=== PATIENT | male | born 1980 | race Caucasian/White ===

== ENCOUNTER 2019-08-17 04:12 | Emergency (ER) | payer SELFPAY ==
[2019-08-17 04:59] LABS: Urine Blood TRACE (NEG); Urine Glucose NEGATIVE (NEG); Urine Protein 1+ (NEG); Urine Specific Gravity >1.030 (1.005-1.030); Urine pH 5.5 (5.0-7.0)
[2019-08-17 05:15] LABS: Urine Bacteria 20-50 /HPF (NONE SEEN); Urine Culture Reflex Order REFLEXED; Urine Mucus 3+ /HPF (NONE SEEN)
[2019-08-17] MEDS ORDERED: AZITHROMYCIN 250 MG TAB ONE (06:22)
[2019-08-17] MEDS ORDERED: CEFTRIAXONE 250 MG/VIAL ONE (06:23)
--- NOTE | 2019-08-17 06:24 | EDPHYS ---
Physician Documentation [facility] Name: Cyril Corea Age: 39 yrs Sex: Male : 1980 Arrival Date: 08/17/2019 Time: 04:14 Bed 2 Private MD: ED Physician Ady Neely HPI: 08/16 06:21 This 39 yrs old Male presents to ER via Ambulatory with complaints of Penile kb Problem. 06:21 The patient presents with symptoms include dysuria, yellow penile discharge. Onset: The kb symptoms/episode began/occurred 3 day(s) ago. Modifying factors: The symptoms are alleviated by nothing, the symptoms are aggravated by urinating. Associated signs and symptoms: Pertinent positives: dysuria, Pertinent negatives: abdominal pain, constipation, diarrhea, fever, hematuria, nausea, vomiting. Severity of symptoms: At their worst the symptoms were moderate, in the emergency department the symptoms are unchanged. The patient has not experienced similar symptoms in the past. The patient has not recently seen a physician. Pt reports dysuria and yellow penile discharge for 3 days. . Historical: - Allergies: 04:36 No Known Allergies; rr5 - Home Meds: 04:36 None [Active]; rr5 - PMHx: 04:36 None; rr5 - PSHx: 04:36 leg surgery; right arm surgery; rr5 - Immunization history:: Adult Immunizations up to date. - Social history:: Smoking status: Patient reports the use of cigarette tobacco products, smokes one pack cigarettes per day. Patient uses alcohol, weekly. street drugs, cocaine. ROS: 06:21 Constitutional: Negative for fever, chills, and weight loss, Cardiovascular: Negative kb for chest pain, palpitations, and edema, Respiratory: Negative for shortness of breath, cough, wheezing, and pleuritic chest pain, Abdomen/GI: Negative for abdominal pain, nausea, vomiting, diarrhea, and constipation, Back: Negative for injury and pain, MS/Extremity: Negative for injury and deformity, Skin: Negative for injury, rash, and discoloration, Neuro: Negative for headache, weakness, numbness, tingling, and seizure. 06:21 : Positive for difficulty urinating, penile discharge. Exam: 06:21 Constitutional: This is a well developed, well nourished patient who is awake, alert, kb and in no acute distress. Head/Face: Normocephalic, atraumatic. Chest/axilla: Normal chest wall appearance and motion. Nontender with no deformity. No lesions are appreciated. Cardiovascular: Regular rate and rhythm with a normal S1 and S2. No gallops, murmurs, or rubs. Normal PMI, no JVD. No pulse deficits. Respiratory: Lungs have equal breath sounds bilaterally, clear to auscultation and percussion. No rales, rhonchi or wheezes noted. No increased work of breathing, no retractions or nasal flaring. Abdomen/GI: Soft, non-tender, with normal bowel sounds. No distension or tympany. No guarding or rebound. No evidence of tenderness throughout. Skin: Warm, dry with normal turgor. Normal color with no rashes, no lesions, and no evidence of cellulitis. MS/ Extremity: Pulses equal, no cyanosis. Neurovascular intact. Full, normal range of motion. Neuro: Awake and alert, GCS 15, oriented to person, place, time, and situation. Cranial nerves II-XII grossly intact. Motor strength 5/5 in all extremities. Sensory grossly intact. Cerebellar exam normal. Normal gait. Vital Signs: 04:30 BP 139 / 108; Pulse 89; Resp 16; Temp 99; Pulse Ox 99% ; Weight 70.31 kg; Height 5 ft. rr5 10 in. (177.80 cm); Pain 7/10; 05:40 BP 133 / 79; Pulse 85; Resp 17; Pulse Ox 99% ; rr5 06:30 BP 125 / 85; Pulse 80; Resp 17; Pulse Ox 98% on R/A; rr5 04:30 Body Mass Index 22.24 (70.31 kg, 177.80 cm) rr5 MDM: 06:00 Patient medically screened. kb 06:21 Data reviewed: vital signs, nurses notes. Data interpreted: Pulse oximetry: on room air kb is 99 %. Interpretation: normal. Counseling: I had a detailed discussion with the patient and/or guardian regarding: the historical points, exam findings, and any diagnostic results supporting the discharge/admit diagnosis, lab results, the need for outpatient follow up, a family practitioner, to return to the emergency department if symptoms worsen or persist or if there are any questions or concerns that arise at home. 08/16 04:46 Order name: Urine Microscopic Only; Complete Time: 06:00 rr5 08/16 04:48 Order name: Urine Dipstick--Ancillary (enter results); Complete Time: 06:00 2 08/16 04:46 Order name: Urine Dipstick-Ancillary (obtain specimen); Complete Time: 04:46 rr5 08/16 05:16 Order name: Urine Culture EDCT Administered Medications: 06:25 Drug: Zithromax 1 grams Route: PO; rr5 06:40 Follow up: Response: No adverse reaction rr5 06:30 Drug: Rocephin (cefTRIAXone) 250 mg Route: IM; Site: left gluteus; rr5 06:40 Follow up: Response: No adverse reaction; Medication administered at discharge. rr5 Disposition: 06:48 Co-signature as Attending Physician, Ady Neely MD. [email or web address] Disposition: 08/17/19 06:23 Discharged to Home. Impression: Urinary tract infection, site not specified, Unspecified sexually transmitted disease. - Condition is Stable. - Discharge Instructions: Sexually Transmitted Disease, Ednd-ox-Unpi, Urinary Tract Infection, Adult, [id number]. - Prescriptions for Doxycycline Hyclate 100 mg Oral Tablet - take 1 tablet by ORAL route every 12 hours; 20 tablet. - Medication Reconciliation Form, Thank You Letter, Antibiotic Education, Prescription Opioid Use form. - Follow up: Emergency Department; When: As needed; Reason: Worsening of condition. Follow up: Private Physician; When: 2 - 3 days; Reason: Recheck today's complaints, Continuance of care, Re-evaluation by your physician. Signatures: Dis[facility] Adri Harrington FNP-C FNP-Ckb Roque, Raymond RN RN rr5 Ady Neely MD MD 7 Corrections: (The following items were deleted from the chart) 06:41 06:23 08/17/2019 06:23 Discharged to Home. Impression: Urinary tract infection, site kb not specified; Unspecified sexually transmitted disease. Condition is Stable. Forms are Medication Reconciliation Form, Thank You Letter, Antibiotic Education, Prescription Opioid Use. Follow up: Emergency Department; When: As needed; Reason: Worsening of condition. Follow up: Private Physician; When: 2 - 3 days; Reason: Recheck today's complaints, Continuance of care, Re-evaluation by your physician. kb
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
[2019-08-17 07:03] VITALS: BP 139/108; TEMP 99; O2SAT 99
== END 2019-08-17 06:41 | disposition home or self-care (01) ==
LOC: ER 04:12
DX: N39.0 Urinary tract infection, site not specified (principal); A64 Unspecified sexually transmitted disease; F17.210 Nicotine dependence, cigarettes, uncomplicated
CPT/HCPCS: 81003; 81015; 87086; 87088; 96372; 99283; J0696